=== PATIENT | male | born 1960 | race Caucasian/White ===

== ENCOUNTER 2016-05-24 20:52 | Emergency (ER) | payer OTHER ==
[~2016-05-24] VITALS: Ht 185.4 cm; Wt 100.0 kg
[~2016-05-24 20:52] MED LIST: CIPRO500 MG PO; TEGRETOL-XR,CA400 MG PO; TEGRETOL200 MG PO; TORADOL10 MG PO
[2016-05-25 08:16] VITALS: BP 124/87
== END 2016-05-25 08:18 | disposition home or self-care (01) ==
LOC: EME 20:52
DX: F14.10 Cocaine abuse, uncomplicated (principal); F11.10 Opioid abuse, uncomplicated; T50.901A Poisoning by unspecified drugs, medicaments and biological substances, accidental (unintentional), initial encounter; R45.1 Restlessness and agitation
CPT/HCPCS: 99281; 99285; J1200; J1630; J2060; J2310; J3486